=== PATIENT | male | born 2000 | race Caucasian/White ===

== ENCOUNTER 2020-04-02 14:29 | Emergency (ER) | payer OTHER, MEDICAID, SELFPAY ==
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
[2020-04-03 01:57] VITALS: TEMP 37; BMI 25.7
== END 2020-04-02 15:39 | disposition left against medical advice (07) ==
LOC: ED 15:11
PROVIDERS: Emergency Provider Emergency Medicine; PCP Pediatrics
DX: R69 Illness, unspecified (principal)

== ENCOUNTER 2020-06-27 23:00 | Emergency (ER) | payer MEDICAID, SELFPAY ==
[2020-04-03 01:57] VITALS: BMI 25.7
[2020-06-27 23:00] VITALS: BP 151/91; PULSE 83; RESP 16; TEMP 36.9; O2SAT 96; BMI 19.6
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
[2020-06-28] MEDS: Cephalexin 250 MG Capsule 500 MG PO
== END 2020-06-28 00:23 | disposition home or self-care (01) ==
PROVIDERS: Emergency Provider Emergency Medicine; PCP Pediatrics
DX: S61.012A Laceration without foreign body of left thumb without damage to nail, initial encounter (principal); S63.602A Unspecified sprain of left thumb, initial encounter; F17.200 Nicotine dependence, unspecified, uncomplicated; V49.9XXA Car occupant (driver) (passenger) injured in unspecified traffic accident, initial encounter; Y93.I9 Activity, other involving external motion; Y92.410 Unspecified street and highway as the place of occurrence of the external cause; Y99.8 Other external cause status
CPT/HCPCS: 73130; 99283

== ENCOUNTER 2020-08-24 14:00 | Emergency (ER) | payer MEDICAID, SELFPAY ==
[2020-08-24 14:00] VITALS: BP 123/83; PULSE 91; RESP 16; TEMP 37; O2SAT 96; BMI 19.8
[2020-08-24 14:17] VITALS: BP 126/92; PULSE 87; RESP 16; O2SAT 100
--- NOTE | 2020-08-24 14:19 | ED.DCSUM_ITS ---
History of Present Illness Chief Complaint: Mental Health Informant: Patient Narrative: 18-year-old male presenting with Jessica FERNANDES. Apparently he was upset that he did not have enough family around him at [facility] and got in a verbal altercation with his grandparents. Patient has a history of ADHD he states. He has a history suicidal and homicidal ideation. He states this was years ago and he was threatening to kill his parents and then became suicidal afterwards. Patient does not admit to suicidal homicidal ideations today. It was reported by Jessica FERNANDES that the patient was walking in the road. They did not visualize this however to calls were made by people who saw him reportedly walking on the center line. He states he was walking on the side of the road. He states he was not attempting to get hurt or hurt himself. Patient also states has been off of his Vyvanse instead known for about 3 months. He states it was too expensive to purchase. He has not seen any kind of counselor. Past Medical History - Allergies and Home Meds Allergies/Adverse Reactions: Allergies amoxicillin [From Augmentin] Allergy (Verified 08/24/20 14:02) Other clavulanic acid [From Augmentin] Allergy (Verified 08/24/20 14:02) Other Primary Care Physician: Patricia Hunt MD [Primary Care Provider] - Prior records reviewed: Yes Past Medical History: - - ADHD Surgical History: noncontributory Lives: Spouse/ Significant Other Smoking Status: Current every day smoker Alcohol: None Drugs: None Review of Systems General: Denies: Chills, Fever, Sweats Eyes: Denies: Visual changes - left, Visual changes - right, Visual changes - bilaterally, Blurred vision - left, Blurred vision - right, Blurred Vision - bilaterally, Diplopia, -, - ENT: Denies: Bilateral ear pain, Left ear pain, Right ear pain, Rhinorrhea, Sore throat, -, - Cardiovascular: Denies: Chest pain, Palpitations Respiratory: Denies: Dyspnea, Cough, Dyspnea on exertion Gastrointestinal: Denies: Abdominal pain, Nausea, Vomiting, Diarrhea, Melena, Hematochezia Genitourinary: Denies: Dysuria, Hematuria, Frequency Musculoskeletal: Denies: Back pain, Extremity Pain Skin: Denies: Rash, Wounds Neurological: Denies: Headache, Weakness, Numbness Psych: Denies: Depression, Anxiety, Suicidal thoughts, Suicidal ideations, -, - Physical Exam Vital Signs/Narrative: Vital Signs Temp Pulse Resp BP Pulse Ox 08/24/20 14:00 98.6 F 91 16 123/83 H 96 Inital Vital Signs reviewed: Yes General: Well nourished, Well developed, No Acute Distress Eyes: Perrl, EOMI ENT: Moist mucous membranes, No rhinorrhea Cardiovascular: Regular rate, Regular rhythm, No murmurs Respiratory: No distress, CTA bilaterally, Chest nontender Extremities: Nontender, No edema Skin: Normal color, No rash Neurological: Alert, Oriented x3, Cranial nerves II-XII grossly intact, Normal Strength, Normal Sensation Psychological: Normal affect, Normal Mood Diagnostic/Tx/Re-eval - Medical Decision Making Patient was presented by Jessica FERNANDES for possible SI as he was reported to have been walking in the center of the road. He denies suicidal or homicidal ideation. He is acting normally and has a normal mood and affect. Patient does ask express some concern that his family does not want him around. Patient was discussed with Kath from crisis who did speak with him and felt that he was stable at this time. Regarding his medication he states that if I write him a prescription he could afford it now. He was given a dose of risperidone in the ED and will have to get Vyvanse on an outpatient basis as we do not have that here. But from crisis states that they will reach out to him tomorrow to get him into a counseling center and follow-up. Patient safe for discharge at this time. Impression: 1. History of ADHD ED Disposition - Plan for ED Patient: Disposition: Home or Assisted Living Instructions: Treating ADHD: Medication Prescriptions: Risperidone 1 mg PF DAILY #30 tablet Prescription Printed Lisdexamfetamine Dimesylate [Vyvanse] 30 mg PO DAILY 30 Days #30 tab.chew Prescription Printed Referrals: Patricia Hunt MD [Primary Care Provider] -
[2020-08-24] MEDS: RisperiDONE 1 MG Tablet PO (15:23)
--- NOTE | 2020-08-24 15:30 | ED.RN ---
Pt pacing in room answers appropriately when spoken to. Called mother for ride. verbalized understanding of d/c instructions.
== END 2020-08-24 15:31 | disposition home or self-care (01) ==
PROVIDERS: Emergency Provider Student in an Organized Health Care Education/Training Program; PCP Pediatrics
DX: F90.9 Attention-deficit hyperactivity disorder, unspecified type (principal); F17.200 Nicotine dependence, unspecified, uncomplicated
CPT/HCPCS: 99282

== ENCOUNTER 2020-11-12 08:59 | Emergency (ER) | payer MEDICAID, SELFPAY ==
[2020-11-12 09:01] VITALS: BP 134/79; PULSE 63; RESP 14; TEMP 36.6; O2SAT 97; BMI 20.5
--- NOTE | 2020-11-12 09:30 | RAD_ITS ---
STUDY: X-RAY - LEFT CLAVICLE REASON FOR EXAM: Male, 20 years old. Injury/Pain TECHNIQUE: view(s) of the clavicle. COMPARISON: None. FINDINGS: Normal clavicle. Normal acromioclavicular articulation. Normal visualized sternoclavicular articulation. Normal visualized pulmonary apex. RAD/Clavicle IMPRESSION: Normal x-ray examination of the clavicle. Electronically Signed: Devora Stahl, at 11:04 EDT Tel , Service support ,
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
--- NOTE | 2020-11-12 10:43 | RAD_ITS ---
STUDY: X-RAY - LEFT SHOULDER REASON FOR EXAM: Male, 20 years old. Injury/Pain TECHNIQUE: view(s) of the shoulder. COMPARISON: None. FINDINGS: Normal glenohumeral articulation. Normal acromioclavicular joint. Normal acromion. Normal humeral head and visualized proximal humerus. The soft tissue structures are unremarkable. Normal visualized pulmonary apex. RAD/Shoulder min 2 Views IMPRESSION: Normal x-ray examination of the shoulder. Electronically Signed: Devora Stahl, at 11:05 EDT Tel , Service support ,
--- NOTE | 2020-11-12 10:49 | RAD_ITS ---
STUDY: X-RAY - LEFT ELBOW REASON FOR EXAM: Male, 20 years old. Injury/Pain TECHNIQUE: view(s) of the elbow. COMPARISON: None. FINDINGS: Normal visualized humerus, radius and ulna. Normal radiocapitellar and ulnotrochlear articulations. The soft tissue structures are unremarkable. RAD/Elbow min 3 Views IMPRESSION: Normal x-ray examination of the elbow. Electronically Signed: Devora Stahl, at 11:05 EDT Tel , Service support ,
--- NOTE | 2020-11-12 12:46 | ED.RN ---
Pt out in hallway pacing. this rn asks pt to return to room. Pt states what is taking so long, i have been here forever. This rn apologizes for the wait and informs pt that the department is very busy and the physician will be back as soon as he can. Pt then states this is fucking stupid. This rn asks pt to watch his langaige. Pt states ain't nobody out here lady,freedom of speech this rn told pt he could choose to go back to his room or he could leave.
== END 2020-11-12 13:51 | disposition left against medical advice (07) ==
PROVIDERS: Emergency Provider Emergency Medicine; PCP Pediatrics
DX: S40.012A Contusion of left shoulder, initial encounter (principal); S50.02XA Contusion of left elbow, initial encounter; F90.9 Attention-deficit hyperactivity disorder, unspecified type; F17.210 Nicotine dependence, cigarettes, uncomplicated; Z79.899 Other long term (current) drug therapy; V47.5XXA Car driver injured in collision with fixed or stationary object in traffic accident, initial encounter; Y93.I9 Activity, other involving external motion; Y92.410 Unspecified street and highway as the place of occurrence of the external cause; Y99.8 Other external cause status
CPT/HCPCS: 70450; 73000; 73030; 73080; 99282

== ENCOUNTER 2021-01-11 18:11 | Emergency (ER) | payer MEDICAID, SELFPAY ==
[2021-01-11 18:12] VITALS: BP 109/78; PULSE 95; RESP 16; TEMP 38.6; O2SAT 97; BMI 19.5
--- NOTE | 2021-01-11 18:37 | EX.ED.DYSGE1 ---
HPI History of Present Illness Chief Complaint: Fever Narrative Narrative: Patient presenting for evaluation secondary to a fever. Patient is otherwise healthy does take some medications for antipsychotic purposes. He states that he developed a fever this morning. States that he took 200 mg of ibuprofen about 10 hours ago but had a redevelopment of his fever. He states it is associated with body aches. Denies any other associated symptoms such as cough, sore throat, nausea vomiting or diarrhea, abdominal pain, skin rashes, headache congestion neck stiffness. Patient denies any sick contacts. Patient did not get his coronavirus vaccine. Review of systems otherwise negative. [facility] Medical History ADHD Home Medications Risperidone 1 mg PF DAILY #30 tablet 08/24/20 [Rx Last Taken Unknown] lisdexamfetamine 30 mg PO DAILY 08/24/20 [History Last Taken Unknown] risperidone 1 mg PO DAILY 08/24/20 [History Last Taken Unknown] Allergy/AdvReac Type Severity Reaction Status Date / Time amoxicillin [From Augmentin] Allergy Other Verified 01/11/21 18:12 clavulanic acid Allergy Other Verified 01/11/21 18:12 [From Augmentin] Social History Smoking Status: Current every day smoker tobacco type: cigarettes substance use type: marijuana ROS ROS ED Constitutional Constitutional ED: Reports fever(s) ENT ENT ED: Denies rhinorrhea Cardiovascular Cardiovascular: Denies chest pain Respiratory/Chest Respiratory/Chest: Denies cough or dyspnea Gastrointestinal Gastrointestinal: Denies abdominal pain, diarrhea, nausea or vomiting Genitourinary Genitourinary ED: Denies dysuria or hematuria Musculoskeletal Musculoskeletal: Reports myalgias Integumentary Denies rash Neurologic Neurologic: Denies paresthesias or weakness Psychiatric Psychiatric: Denies depression Endocrine Endocrinology: Denies fatigue Allergic/Immunologic Allergic/Immunologic ED: Denies urticaria EXAM Physical Exam Const Vital Signs: 01/11/21 18:12 Temperature 101.5 F H Temperature Source Temporal Pulse Rate 95 Respiratory Rate 16 Blood Pressure 109/78 Blood Pressure Mean 88 Pulse Ox 97 Oxygen Delivery Method Room Air Positive well nourished and well developed General Appearance ED: well developed and NAD HEENT Reports moist mucous membranes Negative for trauma or tenderness Eyes EOMs intact bilaterally Neck no lymphadenopathy, supple and no JVD Chest Wall inspection of chest normal Resp normal respiratory effort and clear to auscultation bilaterally Cardio regular rate, regular rhythm, no murmurs and peripheral pulses 2+ throughout GI normal to inspection, nondistended, normoactive bowel sounds, non-tender and no masses Palpation: soft Back/Spine normal to inspection Extremity normal to inspection General Extremety ED: Negative for tenderness Neuro oriented x3 and no sensory deficits noted Sensorium / Orientation: alert Motor Exam: strength 5/5 throughout Psych mental status grossly normal Skin no rashes or lesions noted MDM MDM MDM Narrative Medical decision making narrative: This is a well-appearing age-appropriate male presenting with a fever. He has good oxygenation, appears nontoxic, does not seem to have bacterial nidus of infection on physical exam. I am suspicious for viral etiology for the patient's fever, he was given a dose of Tylenol. Giving the epidemic nature of coronavirus, I will send a send out test on the patient, but I do not believe that the patient needs to stay for its results or incur any further work-up. Patient was recommended to quarantine, was recommended expectant management measures. Patient was discharged in stable condition. Discharge Plan Triage Chief Complaint: Fever ED Provider: Jabier Gilbert Dx/Rx/DC Orders Clinical Impression: Acute febrile illness Instructions: COVID-19 and the Flu: What's the Difference?, ED Fever Control (Adult) Prescriptions: No Action risperidone 1 MG tablet 1 mg PO DAILY RF: 0 lisdexamfetamine 30 MG capsule 30 mg PO DAILY RF: 0 Risperidone 1 MG tablet 1 mg PF DAILY Qty: 30 RF: 0 Primary Care Provider: NOT,DEFINED Referrals: NOT,DEFINED [Primary Care Provider] - Disposition Disposition: Home, Self Care
[2021-01-11] MEDS: Acetaminophen 500 MG Tablet 1000 MG PO (18:49)
[2021-01-11 18:54] VITALS: BP 109/78; PULSE 95; PULSE 96; RESP 16; RESP 17; TEMP 38.6; O2SAT 97
== END 2021-01-11 18:44 | disposition home or self-care (01) ==
LOC: ED 18:52
PROVIDERS: Emergency Provider Emergency Medicine; PCP Internal Medicine
DX: R50.9 Fever, unspecified (principal); F17.210 Nicotine dependence, cigarettes, uncomplicated; F12.10 Cannabis abuse, uncomplicated; F90.9 Attention-deficit hyperactivity disorder, unspecified type; Z79.899 Other long term (current) drug therapy
CPT/HCPCS: 87635; 99283; U0005; U0003

== ENCOUNTER 2022-05-14 21:07 | Outpatient (REF) | payer SELFPAY ==
--- NOTE | 2022-05-14 | RAD_ITS ---
INDICATION: post reduction EXAMINATION/TECHNIQUE: X-RAY - RIGHT XR Hand Min 3 Views 3 VIEWS COMPARISON: None. FINDINGS: SOFT TISSUES: No soft tissue swelling or gas. No radiopaque foreign body. BONES/JOINTS: Mid diaphyseal fourth metacarpal fracture with mild dorsal angulation, there has been mild improvement.. No displacement. No joint space involvement. Remaining bony elements have normal appearance. Joint spaces appear normal. RAD/Hand Min 3 Views IMPRESSION: 1. Mid diaphyseal fourth metacarpal fractures with dorsal angulation without joint space involvement. There has been mild improvement since prior exam. Electronically Signed: Marlon Pickett MD at 0:18 EST ,
[2022-05-14 21:07] VITALS: BP 150/90; PULSE 89; RESP 18; TEMP 36.6
[2022-05-14 21:08] VITALS: BP 150/90; PULSE 89; RESP 18; TEMP 36.6; BMI 21.3
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
--- NOTE | 2022-05-14 21:38 | RAD_ITS ---
INDICATION: Injury/Pain EXAMINATION/TECHNIQUE: X-RAY - RIGHT XR Hand Min 3 Views 3 VIEWS COMPARISON: None. FINDINGS: SOFT TISSUES: No soft tissue swelling or gas. No radiopaque foreign body. BONES/JOINTS: There is an acute oblique fracture through the mid proximal midshaft of the fourth metacarpal with mild separation of fracture fragments. There is also dislocation of the fifth metacarpal/carpal joint with mild dorsal medial displacement of the base of the fifth metacarpal .. No sclerotic or destructive changes observed. RAD/Hand Min 3 Views IMPRESSION: Acute fracture of the proximal to midshaft of the fourth metacarpal and dislocated fifth carpal/metacarpal joint Electronically Signed: Dnoald Wyatt MD at 22:00 EST ,
[2022-05-15 00:24] VITALS: BP 124/79
== END 2022-05-15 00:26 ==
LOC: ED 21:07
PROVIDERS: PCP Internal Medicine; Visit Provider Emergency Medicine
DX: S62.324A Displaced fracture of shaft of fourth metacarpal bone, right hand, initial encounter for closed fracture (principal); S62.326A Displaced fracture of shaft of fifth metacarpal bone, right hand, initial encounter for closed fracture; F17.210 Nicotine dependence, cigarettes, uncomplicated; W22.09XA Striking against other stationary object, initial encounter
CPT/HCPCS: 73130